=== PATIENT | female | born 1990 | race Caucasian/White ===

== ENCOUNTER 2016-10-18 17:47 | Emergency (ER) | payer OTHER ==
[~2016-10-18] VITALS: Ht 154.9 cm; Wt 68.0 kg
[~2016-10-18 17:47] MED LIST: AMOXICILLIN875 MG PO; DIABETIC TUSSI PO; FIORICET 325 MG1 TA1 PO; LACTINEX1 TAB.CHEW PO; LEVAQUIN750 MG PO; PROAIR HFA0.09 MG/Ac IH; SYMBICORT1 AE1 IH; ULTRAM50 MG PO; VIBRAMYCIN100 MG PO; ZITHROMAX500 MG PO
[2016-10-18 18:11] VITALS: BP 103/63
[2016-10-18] MEDS ORDERED: NACL 0.9% 1,000 ML IV ONE (18:15)
--- NOTE | 2016-10-18 18:54 | NUR ---
PATIENT PRESENTS TO ED WITH SORE THROAT FOR 2 DAYS . DENIES N/V/D; SKIN IS PINK/WARM/DRY; AAOX4 WITH EVEN AND STEADY GAIT; PT DENIES ANY FEVER, CP, SOB, OR COUGH AT THIS TIME; PATIENT STATES PAIN OF 8/10 AT THIS TIME; VSS; PATIENT POSITIONED FOR COMFORT; HOB ELEVATED; BEDRAILS UP X1; BED DOWN.
[2016-10-18] MEDS ORDERED: ONDANSETRON 4 MG TAB PO ONE (19:25)
[2016-10-18] MEDS ORDERED: predniSONE 20 MG TAB PO ONE (19:25)
[2016-10-18] MEDS ORDERED: KETOROLAC 60 MG/2 ML VIAL IM ONE (19:25)
[2016-10-18 20:52] VITALS: BP 105/67
--- NOTE | 2016-10-18 20:52 | NUR ---
Patient discharged with v/s stable. Written and verbal after care instructions given and explained. Patient alert, oriented and verbalized understanding of instructions. Ambulatory with steady gait. All questions addressed prior to discharge. ID band removed. Patient advised to follow up with PMD. Rx of ZOFRAN, IBUPROFEN, PREDNISONE, ULTRAM given. Patient educated on indication of medication including possible reaction and side effects. Opportunity to ask questions provided and answered.
== END 2016-10-18 20:52 | disposition home or self-care (01) ==
LOC: MED 17:47
DX: J02.9 Acute pharyngitis, unspecified (principal); R11.2 Nausea with vomiting, unspecified; Z79.899 Other long term (current) drug therapy
CPT/HCPCS: 81025; 96372; 99283; J1885; J7512; Q0162